=== PATIENT | female | born 1985 | race Caucasian/White ===

== ENCOUNTER 2017-10-30 00:09 | Observation (INO) | payer OTHER ==
--- NOTE | 2017-10-29 10:22 | History & Physical ---
History of Present Illness Chief Complaint Persistent cervical dysplasia History of Present Illness 32-year-old presents with persistent cervical dysplasia. She recently underwent a colposcopy on 09/27/17 for an ASCUS +HR HPV PAP smear. 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 These findings are despite having a LEEP procedure on 06/08/16. Please see below for details of her most recent dysplasia. After discussing the results of her colposcopy, the patient is requesting definitive management with hysterectomy. She has also been having irregular spotting with her IUD which has been bothersome. She does not want any further children. Review of records: -09/27/17: Colpo - CIN2/3 -06/11/17: ASCUS +HR HPV (neg ) -06/08/16: LEEP - CIN2/3 with negative margens -06/01/16: Colpo - CIN2/3 at 11 o'clock biopsy, neg ECC -03/08/16: ASC-H +HR HPV and HPV 16 -10/08/13: Colpo during - neg ECC, no biopsies -09/01/13: ASC-H +HR HPV and HPV 16 History Obstetrical History: G1: 37wk PLTCD G2: Elective AB Past Medical History: PMH: Genital herpes PSH: x 1, LEEP, tonsillectomy, breast lumpectomy Allergies: Coded Allergies: No Known Drug Allergies (Verified , 10/19/08) Social History: Single, Smokes 1 cigarette/day, no recent use of alcohol or illicit drugs. Med Rec Home Meds Reported Medications Valacyclovir Hcl (VALTREX) 1,000 Mg Tablet, 1 TAB PO QDAY 10/21/17 Review of Systems Constitutional: No Fever Neurological: No Syncope Eyes: No Vision Change ENT: No Hearing Loss Cardiovascular: No Chest Pain, No Palpitations Respiratory: No Shortness of Breath, No Cough Gastrointestinal: No Nausea, No Vomiting, No Diarrhea Genitourinary: No Dysuria Musculoskeletal: No Pain, No Sprain Psychiatric: No Depression, No Anxiety Exam General Exam Vital Signs Pulse 76 BP 118/78 Resp 14 SaO2 95% on room air Weight 130# BMI 24 General Apperance: Alert/Awake/No Acute Distress Neuro: No Gross deficits Eyes: Normal Extraocular Movement & Vison Cardiovascular: Regular Rate and Rhythm Respiratory: No Respiratory Distress, Clear to Auscultation Abdomen: Soft, Non-Tender, Non-Distended : Normal Musculoskeletal: No Weakness/Pain Extremities: No Cyanosis,Clubbing or Edema Integumentary: Skin Intact without Lesions or Rash Psychological: Alert & Oriented X3, Appropriate Mood & Affect Medical Decision Making Data Points Colposcopy 09/27/17: Benign ECC, 5 o'clock biopsy CIN1, 10 o'clock biopsy PRATEEK 2/3 Pre-Admit Course Medical Record Review: Yes Assessment and Plan Problems: (1) Cervical dysplasia Assessment & Plan: 32-year-old presents with recurrent cervical dysplasia. Her most recent colposcopy results revealed PRATEEK 2/3. After discussing the results results, she was recommended to undergo a cold knife conization. However, she is certain she does not want anymore children. She is also certain that she does not desire two surgeries. She is requesting definitive management with a hysterectomy. We have discussed the risks, benefits and alternatives. She would like to undergo a robotic-assisted TLH with bilateral salpingectomy and diagnostic cystoscopy. She is scheduled for . MIGUEL ÁNGEL MCCLOUD MD Oct 29, 2017 10:22
[2017-10-30] VITALS (15 sets, daily range): BP systolic 108–133; BP diastolic 74–91
[~2017-10-30] VITALS: Ht 162.6 cm; Wt 59.0 kg
[~2017-10-30 00:09] MED LIST: DOCO100C2 PO; DOCU240C67 PO; ESTR-33 PO; Ibuprofen PO; LEVO1TAB29 PO; Lanolin TP; NIF10 PO; PER PO; PNV1TABL77 PO; VALA100062 PO; VALA500T66 PO
[2017-10-30 06:26] LABS: PLATELET COUNT, AUTOMATED 323 K/uL (150-450)
[2017-10-30] MEDS ORDERED: BUPIV/EPI 0.25% 1:200,000 50ML INFIL ONE (06:49)
[2017-10-30] MEDS ORDERED: FAMOTIDINE 20 MG/50 ML PREMIX IVPB ONE (06:50)
[2017-10-30] MEDS ORDERED: fentaNYL CITR 250 MCG/5 ML AMP ONE (07:00)
[2017-10-30] MEDS ORDERED: DEXAMETHASONE SOD PHOS 10MG/ML ONE (07:00)
[2017-10-30] MEDS ORDERED: PROPOFOL EMUL(*) 10MG/ML 20 ML 20 ML ONE (07:00)
[2017-10-30] MEDS ORDERED: ONDANSETRON 4 MG/2 ML VIAL ONE (07:00)
[2017-10-30] MEDS ORDERED: LIDOCAINE MPF 1% 5 ML VIAL ONE (07:00)
[2017-10-30] MEDS ORDERED: KETAMINE HCL 200 MG/20 ML MDV ONE ×2 (07:05→08:16)
[2017-10-30] MEDS ORDERED: HALOPERIDOL LACT 5 MG/ML VIAL IM ONE (07:10)
[2017-10-30] MEDS ORDERED: ACETAMINOPHEN(*)1000 MG/100 ML 100 ML IVPB ONE (07:10)
[2017-10-30] MEDS ORDERED: ROCURONIUM BROM 10 MG/ML 10 ML ONE (07:30)
[2017-10-30] MEDS ORDERED: LIDOCAINE/SOD BICARB 8.4% SYR ID ONE (07:40)
[2017-10-30] MEDS ORDERED: FAMOTIDINE 20 MG TAB PO ONE (07:40)
[2017-10-30] MEDS ORDERED: NORMOSOL R SOLN(*) 1000 ML BAG 1,000 ML IV PRN (07:40)
[2017-10-30] MEDS ORDERED: cefOXitin/DEX(*) 2GM/50ML PREM 50 ML IVPB ONE (07:40)
[2017-10-30] MEDS ORDERED: MIDAZOLAM 2 MG/2 ML VIAL IVP PRN (07:40)
[2017-10-30] MEDS ORDERED: PHENAZOPYRIDINE 200 MG TAB PO ONE (07:40)
[2017-10-30] MEDS ORDERED: SUGAMMADEX SOD 200 MG/2 ML SDV ONE (08:04)
[2017-10-30] MEDS ORDERED: KETOROLAC 30 MG/ML VIAL ONE (08:47)
--- NOTE | 2017-10-30 09:08 | Post Operative Note ---
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
[2017-10-30] MEDS ORDERED: INFLUENZA VIRUS VAC 0.5 ML SYR IM ONE (09:10)
[2017-10-30] MEDS ORDERED: MAGNESIUM HYDROXIDE* 30ML UDCP PO PRN (09:10)
[2017-10-30] MEDS ORDERED: METOCLOPRAMIDE 10 MG/2 ML SDV IV PRN (09:10)
[2017-10-30] MEDS ORDERED: ACETAMINOPHEN 325 MG TAB PO PRN (09:10)
[2017-10-30] MEDS ORDERED: BENZONATATE 100 MG CAP PO PRN (09:10)
[2017-10-30] MEDS ORDERED: DLR(*) 1000 ML BAG 1,000 ML IV PRN (09:10)
[2017-10-30] MEDS ORDERED: fentaNYL CITR 100 MCG/2 ML AMP ONE (09:17)
[2017-10-30] MEDS ORDERED: PROMETHAZINE 25 MG/ML 1 ML AMP ONE (09:41)
[2017-10-30] MEDS ORDERED: DOCU-416 PO (10:06)
[2017-10-30] MEDS ORDERED: OXYC-865 PO (10:06)
[2017-10-30] MEDS ORDERED: IBUP800T37 PO (10:06)
--- NOTE | 2017-10-30 11:32 | OPERATIVE REPORT 1 ---
EVENT DATE: October 30, 2017 SURGEON: Helen Meneses M.D. ANESTHESIOLOGIST: Jeff Purvis M.D. ANESTHESIA: General endotracheal. STRATEGIC PLANNING DIRECTOR: Thom Alvarez D.O. 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 POSTOPERATIVE DIAGNOSIS Persistent PRATEEK 2/3. PROCEDURE PERFORMED 1. Robotic assisted total laparoscopic hysterectomy with bilateral salpingectomy. 2. Diagnostic cystoscopy. SPECIMENS REMOVED Uterus, cervix, bilateral fallopian tubes. IV FLUIDS 1,000 mL. ESTIMATED BLOOD LOSS 30 mL. INDICATIONS This patient is a 32-year-old, 2, para 1-0-1-1 who presents with recurrent persistent cervical dysplasia. Her most recent colposcopy results revealed PRATEEK 2/3. After discussing the results, she was recommended to undergo a cold-knife conization. However, she is certain she does not want anymore children and has requested definitive management with a hysterectomy. She, therefore, was admitted for the above said procedure. DESCRIPTION OF PROCEDURE The patient was prepped and identified and taken to the operating room. She was placed under general endotracheal tube anesthesia, placed in the dorsal lithotomy position and prepped and draped in the usual fashion for laparoscopic assisted vaginal procedure. The patient received Mefoxin preoperatively for prophylactic antibiotics. Her SCDs were on and functioning. A time-out was taken prior to the procedure. A bimanual exam was performed revealing a 7 cm retroverted uterus. A ni speculum was placed to visualize the cervix. The anterior lip of the cervix was grasped with a tenaculum. The cervix was then serially dilated to 5 mm using Esperanza dilators. A medium V-Care uterine manipulator was then requested and assembled. A suture was placed through the anterior lip of the cervix through the os and then from the os to the posterior lip of the cervix. The IUD that was in the uterus was removed using a single-tooth tenaculum. The V-Care was then passed into the uterine fundus and the tip was insufflated. This remained in place. The colpotomy ring was advanced to be flush against the cervix, which was then tied down with an 0 Vicryl suture. The uterine manipulator was then advanced into the vagina and secured. A Jenkins catheter was then placed to drain the bladder. The patient was then placed in supine position and attention was turned to the laparoscopic portion of the procedure. The supraumbilical region was infiltrated with 0.25% Marcaine with epinephrine. A Veress needle was tested and proved to be functioning. The Veress needle was attempted to pass through the 8 mm incision supraumbilically with an initial high opening pressure. Therefore, the Veress needle was removed and the 8 mm trocar was introduced under direct visualization using a [employer] laparoscope. Once entry into the abdominal cavity was confirmed, surveillance revealed no injury from the prior attempt a Veress needle insertion. The remaining locations of the trocar were then planned with two on the right and two on the left. The two 8 mm trocars were inserted under direct visualization on the patient's right side after infiltration of 0.25% Marcaine and making an 8 mm incision with the scalpel. On the patient's left side, an 11 mm incision was made on the most lateral incision and an 8 mm incision in the more medial. The location of the trade sales assistant port, which would be the 11 mm incision, was noted to have significant adhesions. Therefore, the 8 mm port was placed and manipulation was then performed with a [place] grasper to remove the anterior wall adhesions in order to visualize the 11 mm trade sales assistant port. This was then introduced under direct visualization without difficulty. At this time, the patient was placed in the Trendelenburg position and the da Na robotic system was prepared for docking. It was then brought in and aligned. The endoscope part was docked. The endoscope was then introduced and targeting was performed on the uterus. The remaining arms were then docked without difficulty. The Fenestrated Bipolar graspers, ProGrasp and monopolar scissors were then advanced under direct visualization to the pelvis and energy was connected. At this time, I was able to break sterile attire and sit at the console to initiate the hysterectomy. When Trendelenburg position was obtained, it was evident that a fundal perforation of the uterus had been achieved with the V- Care device. Therefore, Dr. Alvarez was able to retract the tip of the V-Care back into the uterus for adequate manipulation. There was no injury to the bowel. Examination of the pelvis revealed no significant adhesions or abnormalities. In order to initiate the salpingectomy on the left side the patient's left fallopian tube was elevated and the mesosalpinx was cauterized and transected. This tube was removed through the trade sales assistant port. The same procedure was performed on the patient's right side, where the right fallopian tube was elevated and the mesosalpinx was cauterized and transected and the right tube was brought out through the trade sales assistant port. The bilateral ovaries were noted to be normal without any lesion. The ureters were far from any planned incision at the pelvic rim. The utero-ovarian ligament was then cauterized and transected followed by the round ligament on the patient's right side. The anterior leaflet of the broad ligament was then opened and brought across the midline above the colpotomy ring in order to separate the vesicouterine peritoneum. The posterior peritoneum was then dissected further off the uterus on the right side down to the cervix. The uterine vessels were identified, cauterized and transected in order to allow the colpotomy to be performed. Attention was then turned to the patient's left side, where the left utero-ovarian ligament was cauterized and transected followed by the left round ligament. Once this was achieved, the broad ligament was opened on the left side and anteriorly brought down to the midline to where the prior vesicouterine peritoneum had been dissected. The posterior leaflet was then also brought down to the level of the colpotomy ring. The uterine vessels were then visualized and cauterized and taken down with the monopolar scissors to the level of where the colpotomy would need to be performed. At this time, the bladder flap was further delineated and brought down without difficulty to a safe area in order to allow for closure of the vaginal cuff layer. The colpotomy was then initiated anteriorly with identification of the colpotomy ring. The colpotomy was then continued in a circumferential fashion until the entire colpotomy was completed. The uterus was then delivered through the vagina without any difficulty and a plastic bulb grenade was placed in the vagina to maintain pneumoperitoneum. The cuff was then copiously irrigated and noted to be hemostatic. A 0 Vicryl suture was then utilized in a [id number] manner to reapproximate the tissue on the left corner. A V-Loc was then initiated on the right side to reapproximate the right corner following to the left with an unmarked suture. Once this was completely closed, the stitch was followed backwards with two additional sutures towards the right. Once this was completed, copious irrigation was again performed, revealing adequate hemostasis. Using the Gilberto-Luna device, the fascia of the trade sales assistant port was then closed using 0 Vicryl for robotic assistance. All of the robotic instruments were removed and the robotic arms were undocked. Pneumoperitoneum was relieved and the 11 mm fascia was tied down. All five skin incisions were reapproximated using 4-0 Monocryl and closed with Dermabond. The Jenkins catheter was then removed from the bladder. A cystoscope was assembled and introduced through the urethra and into the bladder under direct visualization. The entire bladder was evaluated and noted to be normal without any lesions or sutures. Bilateral ureteral jets were noted with Pyridium stained urine. The cystoscope was then removed and the Jenkins catheter was replaced. The patient tolerated the procedure well and recovered in the Post-Anesthesia Care Unit. All sponge and needle counts were correct at the end of the procedure. ROWAN
[2017-10-30] MEDS: HYDROmorphone HCL 2 MG/ML SDV IVP PRN ×3 (12:25→22:04)
[2017-10-30] MEDS: KETOROLAC 30 MG/ML VIAL IVP SCH ×2 (14:28→21:18)
--- NOTE | 2017-10-30 15:08 | OB/GYN Progress Note ---
OB Subjective Progress Notes Subjective Pt doing well, pain is controlled with Dilaudid for now. Will start Percocet soon. Jenkins in. No ambulation yet. OB Objective Physical Exam Vital Signs Date Time Temp Pulse Resp B/P (MAP) Pulse Ox O2 Delivery O2 Flow Rate FiO2 10/30/17 13:30 58 16 115/76 (89) 94 Room Air 10/30/17 11:00 1.0 10/30/17 10:30 97.6 General Appearance: Alert/Awake/No Acute Distress Neurological: No Gross deficits Eyes: Normal Extraocular Movement & Vison Cardiovascular: Normal Rhythm & Peripheral Pulses, Regular Rate and Rhythm Respiratory: No Respiratory Distress, Clear to Auscultation Abdomen: Soft, Non-Tender, Non-Distended Incision: Clean, Dry, Intact Extremities: No Cyanosis,Clubbing or Edema Integumentary: Skin Intact without Lesions or Rash Psychological: Alert & Oriented X3, Appropriate Mood & Affect Result Diagram: 10/30/17 0617 Assessment and Plan Problems: (1) Status post laparoscopic hysterectomy Assessment & Plan: POD#0 s/p DESEAN SINGH, dx cysto. Routine orders. MIGUEL ÁNGEL MCCLOUD MD Oct 30, 2017 15:08
[2017-10-30] MEDS: SIMETHICONE 80 MG CHEW CHEW PRN (18:22)
[2017-10-30] MEDS: ONDANSETRON 4 MG/2 ML VIAL IV PRN (19:16)
[2017-10-30] MEDS: DOCUSATE CALCIUM 240 MG CAP PO SCH (21:10)
[2017-10-30] MEDS: FAMOTIDINE 20 MG TAB PO SCH (21:11)
[2017-10-31] MEDS: KETOROLAC 30 MG/ML VIAL IVP SCH (03:32)
[2017-10-31 03:45] VITALS: BP 115/84
[2017-10-31] MEDS: HYDROmorphone HCL 2 MG/ML SDV IVP PRN (04:19)
[2017-10-31] MEDS: ONDANSETRON 4 MG/2 ML VIAL IV PRN (06:16)
[2017-10-31 06:39] LABS: PLATELET COUNT, AUTOMATED 313 K/uL (150-450)
[2017-10-31 07:30] VITALS: BP 118/81
[2017-10-31] MEDS ORDERED: ONDANSETRON 4 MG ODT TABDP SL PRN (08:45)
[2017-10-31] MEDS ORDERED: IBUPROFEN 800 MG TAB PO PRN (09:00)
--- NOTE | 2017-10-31 09:15 | OB/GYN Progress Note ---
OB Subjective Progress Notes Subjective Pt is having some nausea this morning with vomiting, but only received IV narcotics overnight. She is tolerating po until this morning. She is ambulating and feels hungry. Voiding without difficulty. No chest pain, SOB, dizziness. OB Objective Physical Exam Vital Signs Date Time Temp Pulse Resp B/P (MAP) Pulse Ox O2 Delivery O2 Flow Rate FiO2 10/31/17 07:30 97.5 118/81 (93) 96 Room Air 10/31/17 04:42 1.0 10/31/17 03:45 53 15 Intake and Output 10/31/17 07:00 Intake Total 4135 ml Output Total 3105 ml Balance 1030 ml Intake Oral 1350 ml IV Total 2785 ml Output Urine Total 3075 ml Estimated Blood Loss 30 ml General Appearance: Alert/Awake/No Acute Distress Neurological: No Gross deficits Eyes: Normal Extraocular Movement & Vison Cardiovascular: Normal Rhythm & Peripheral Pulses, Regular Rate and Rhythm Respiratory: No Respiratory Distress, Clear to Auscultation Abdomen: Soft, Non-Tender, Non-Distended Incision: Clean, Dry, Intact Extremities: No Cyanosis,Clubbing or Edema Integumentary: Skin Intact without Lesions or Rash Psychological: Alert & Oriented X3, Appropriate Mood & Affect Result Diagram: 10/31/17 0626 Assessment and Plan Problems: (1) Status post laparoscopic hysterectomy Assessment & Plan: POD#1 s/p DESEAN SINGH, dx cysto. Will transition to all oral meds now and reevaluate later this morning. MIGUEL ÁNGEL MCCLOUD MD Oct 31, 2017 09:15
[2017-10-31 09:43] VITALS: Ht 162.6 cm; Wt 59.0 kg
[2017-10-31] MEDS: DOCUSATE CALCIUM 240 MG CAP PO SCH (10:00)
[2017-10-31] MEDS: FAMOTIDINE 20 MG TAB PO SCH (10:00)
[2017-10-31 11:05] VITALS: BP 119/79
[2017-10-31] MEDS: SIMETHICONE 80 MG CHEW CHEW PRN (12:49)
[2017-10-31] MEDS ORDERED: ONDANSETRON 4 MG ODT TH SL ONE (12:55)
--- NOTE | 2017-11-01 08:17 | OB/GYN Discharge Summary ---
Discharge Summary Reason for Hosp/Final Diag: (1) Status post laparoscopic hysterectomy Hospital Course & Plan: POD#1 s/p DESEAN SINGH, dx cysto. After a nap and some zofran, she felt much better and requested discharge to home. RTC 10-14 days. Lates Vital Signs Vital Signs Date Time Temp Pulse Resp B/P (MAP) Pulse Ox O2 Delivery O2 Flow Rate FiO2 10/31/17 11:55 97.5 10/31/17 11:05 18 119/79 (92) 10/31/17 07:30 96 Room Air 10/31/17 04:42 1.0 10/31/17 03:45 53 Weight (Pounds): 130 Result Diagram: 10/31/17625 Condition: Improved Discharge: Home, Self [facility] Meds Active Scripts Docusate Sodium (COLACE) 100 Mg Capsule, 100 MG PO BID PRN for constipation, #60 CAPSULE 0 Refills Prov:MIGUEL ÁNGEL MCCLOUD MD 10/30/17 Oxycodone Hcl/Acetaminophen (PERCOCET 5-325 MG TABLET) 1 Each Tablet, 1 TAB PO Q4-6H PRN for pain, #30 TAB 0 Refills Prov:MIGUEL ÁNGEL MCCLOUD MD 10/30/17 Ibuprofen (IBUPROFEN) 800 Mg Tablet, 1 TAB PO Q8H PRN for pain, #30 TAB 0 Refills TAKE WITH FOOD EVERY 8 HOURS Prov:MIGUEL ÁNGEL MCCLOUD MD 10/30/17 Reported Medications Valacyclovir Hcl (VALTREX) 1,000 Mg Tablet, 1 TAB PO QDAY 10/21/17 Follow up Referrals: [facility] - In Two Weeks @ [facility] with MIGUEL ÁNGEL MCCLOUD MD Discharge Diet: As Tolerates Discharge Activity: No Heavy Lifting > 10lb, Pelvic Rest MIGUEL ÁNGEL MCCLOUD MD Nov 01, 2017 08:17
== END 2017-10-31 12:56 | disposition home or self-care (01) ==
LOC: OR 00:09 → PED 10:30
PROVIDERS: ADMIT Obstetrics & Gynecology; ATTEND Obstetrics & Gynecology
DX: N87.9 Dysplasia of cervix uteri, unspecified (principal)
CPT/HCPCS: 36415; 58571; 84703; 85025; 88307; 96372; G0378; J0131; J0694; J1100; J1170; J1630; J1885; J2001; J2250; J2405; J2550; J2704; J3010; J3490; S0119; S2900

== ENCOUNTER → 2018-01-24 | Outpatient (CLI) | payer OTHER ==
[2017-10-31 09:43] VITALS: BMI 22.3
[~2018-01-24] MED LIST changes: +DOCU-416 PO; +IBUP800T37 PO; +METR-1 PO; +OXYC-865 PO
== END ==
LOC: LAB 08:48
PROVIDERS: ATTEND Obstetrics & Gynecology
DX: Z20.2 Contact with and (suspected) exposure to infections with a predominantly sexual mode of transmission (principal)
CPT/HCPCS: 36415; 86592; 86703; 86803; 87210; 87340; 87491; 87591

== ENCOUNTER → 2018-05-08 | Outpatient (CLI) | payer OTHER ==
[2017-10-31 09:43] VITALS: BMI 22.3
[~2018-05-08] MED LIST changes: +FLUC150T40 PO
== END ==
LOC: LAB 08:01
PROVIDERS: ATTEND Student in an Organized Health Care Education/Training Program
DX: R10.2 Pelvic and perineal pain (principal)
CPT/HCPCS: 87210; 87491; 87591